=== PATIENT | male | born 1960 | race Caucasian/White ===

== ENCOUNTER 2016-05-12 01:24 | Emergency (ER) | payer OTHER ==
--- NOTE | 2016-05-12 03:30 | ED NURSING NOTES ---
Clinical Report - Nurses [facility] [place] [address] 05/12/2016 1:25 Patient: ADRIANE RODRIGUEZ TRIAGE Triage time 01:40. Acuity: LEVEL 3. Chief Complaint: ABDOMINAL PAIN, VOMITING and DIARRHEA. 01:46. Alert. SEPSIS SCREEN: Sepsis Screen. Negative (no infection suspected/documented). --01:46 Sathish Cantu R.N. 01:38 05/12/16. BP: 134/96. HR: 65. RR: 15. O2 saturation: 96%. Temp: 95.8 F (oral). Pain level now: 11/17. --01:46 Sathish Cantu R.N. Weight: 77.1 kg stated. Height/Length: 75 inches Per Patient. BMI: 21.2. --01:45 Sathish Cantu R.N. Medications None. --01:41 Sathish Cantu R.N. Medication/allergy information source: the patient. --01:46 Sathish Cantu R.N. Allergies No Known Drug Allergy. --01:41 Sathish Cantu R.N. History Arrived by private vehicle. Historian: patient. Accompanied by family. Primary physician (Alfredo). Onset. (5 days ago). 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 PAST MEDICAL HX: Immunizations: up-to-date. SOCIAL HX: Current every day heavy tobacco smoker- less than 1 pack per day. Occasional alcohol use. History of occasional drug use: marijuana. No recent travel. No infectious disease exposure. ABUSE ASSESSMENT: No report of abuse. FALL RISK ASSESSMENT: Fall risk assessment completed. No fall risk identified. NUTRITIONAL RISK ASSESSMENT: The nutritional risk assessment revealed no deficiencies. FUNCTIONAL ASSESSMENT: Functional assessment: no impairments noted. LEARNING NEEDS ASSESSMENT: The learning needs assessment revealed no barriers. SKIN INTEGRITY ASSESSMENT: Skin integrity risk assessment completed. No skin integrity risk identified. --01:46 Sathish Cantu R.N. PROBLEMS: Dental Abscess. Dental Caries. Bronchitis. --01:41 Sathish Cantu R.N. ADDITIONAL SURGERIES: Knee Surgery. --01:41 Sathish Cantu R.N. Interventions ID band on patient. To treatment room. --01:46 Sathish Cantu R.N. PHYSICAL ASSESSMENT 01:46. To room via wheelchair. Patient gowned. GENERAL / NEURO / PSYCH: Alert. Oriented X 4. HEENT: Mucous membranes are pink. RESPIRATORY: Respirations not labored. SKIN: Skin is warm and dry. --01:46 Sathish Cantu R.N. NURSING PROGRESS NOTES 01:46. Head of bed elevated. Two patient identifiers checked. Call light placed in reach. Bed placed in lowest position. Brakes of bed on. --01:46 Sathish Cantu R.N. Pulse oximeter and NIBP monitor placed on patient; monitor alarms on. --01:47 Sathish Cantu R.N. 01:52 05/12/2016 Site #1 started via IV in the right antecubital space with an 18g angiocath, with aseptic technique and good blood return; one attempt. Blood drawn: rainbow set. Labeled in the presence of the patient and sent to the lab. --01:57 Sathish Cantu R.N. 01:53 05/12/2016 Started bag #1 1000 mL IV Fluids IV NS (Saline); at 1000 mL/hr over 1 hour(s) via site #1 --01:57 Sathish Cantu R.N. 01:55 05/12/2016 Zofran (Ondansetron HCl) IVP 4 mg given over 2 minute(s) via site #1. Allergies verified and confirmed 5 rights. IV patency established. IV site checked: no pain, redness, or swelling. IV flushed thoroughly pre- and post-medication administration. --01:58 Sathish Cantu R.N. 01:46 Patient reports unable to provide urine sample now. --02:03 Sathish Cantu R.N. 02:45 05/12/2016 PHENERGAN (Promethazine HCl) IVP 25 mg given over 2 minute(s) via site #1. Allergies verified and confirmed 5 rights. IV patency established. IV site checked: no pain, redness, or swelling. IV flushed thoroughly pre- and post-medication administration. --02:50 Sathish Cantu R.N. 02:47 05/12/2016 Benadryl (DiphenhydrAMINE HCl) IVP 25 mg given over 2 minute(s) via site #1. Allergies verified, confirmed 5 rights and sedative warning given to the patient and patient's family. IV patency established. IV site checked: no pain, redness, or swelling. IV flushed thoroughly pre- and post-medication administration. --02:51 Sathish Cantu R.N. 02:49 05/12/2016 Started bag #2 1000 mL IV Fluids IV NS (Saline); at 1000 mL/hr over 1 hour(s) via site #1 --02:51 Sathish Cantu R.N. 03:46. The patient is calm and resting quietly. SKIN: Skin is warm and dry. Skin color within normal limits. --03:48 Sathish Cantu R.N. DISPOSITION / DISCHARGE 02:48 05/12/2016 IV Fluids IV NS Discontinued: bag #1 infused. Total amount infused: 1000 mL. IV patency established. IV site checked: no pain, redness, or swelling. IV flushed thoroughly. --03:46 Sathish Cantu R.N. 03:43 05/12/2016 IV Fluids IV NS Discontinued: bag #2 infused upon discharge. Total amount infused: 1000 mL. IV patency established. IV site checked: no pain, redness, or swelling. IV flushed thoroughly. --03:47 Sathish Cantu R.N. 03:45 05/12/2016 Site #1 removed. Catheter intact. Bandage applied. --03:47 Sathish Cantu R.N. Departure time: 03:48. Condition at departure: stable. No learning barriers present. Discharge instructions provided and reviewed with the patient and family. Reviewed medication(s) side effects, precautions, dosing and course information. Prescription(s) given to the patient. Patient and family verbalized understanding. Written instructions provided in Kiswahili. The patient was discharged home and accompanied by family. He left the Emergency Department ambulatory and via private vehicle. Family member driving. FALL RISK ASSESSMENT: Fall risk assessment completed. No fall risk identified. --03:48 Sathish Cantu R.N. 03:40 05/12/16. BP: 131/87. HR: 81. RR: 17. O2 saturation: 100%. --03:48 Sathish Cantu R.N. Locked/Released at 05/12/2016 3:49 by Sathish Cantu R.N.
--- NOTE | 2016-05-12 03:30 | ED ORDER SUMMARY ---
..... Patient: ADRIANE RODRIGUEZ OrderSheet [facility] VisitID: [id number] [place] [address] 55y, M Registration Date/Time: 05/12/2016 ORDER SHEET Weight: 77.1 kg (stated) Allergies: No Known Drug Allergy GENERAL ORDERS: CBC w Diff Urgent (01:55 05/12/2016 JQuivey R.N. per protocol) (Ack 1:58 CHagerty ER Manager Managing) (1:58 JQuivey R.N.) CMP Urgent (:05/12/2016 JQuivey R.N. per protocol) (Ack 1:58 CHagerty ER Manager Managing) (1:58 JQuivey R.N.) UA-Culture if indicated Urgent (:05/12/2016 JQuivey R.N. per protocol) (Ack 1:58 CHagerty ER Manager Managing) (Cancelled: Other3:37 JQuivey R.N.) Amylase Urgent (:05/12/2016 JQuivey R.N. per protocol) (Ack 1:58 CHagerty ER Manager Managing) (1:58 JQuivey R.N.) Lipase Urgent (:05/12/2016 JQuivey R.N. per protocol) (Ack 1:58 CHagerty ER Manager Managing) (1:58 JQuivey R.N.) MEDICATION ORDERS: Phenergan IV 25 mg (HIGH ALERT MEDICATION, NOW) (02:38 05/12/2016 Sanjay HELLER) (Ack 2:44 JQuivey R.N.) (2:50 JQuivey R.N.) IV FLUIDS: IV NS : initial bolus none -, then 1000 mL/hr (NOW) (01:54 05/12/2016 JQuivey R.N. per protocol) (1:57 JQuivey R.N.) Zofran IV 4 mg (NOW) (01:55 05/12/2016 JQuivey R.N. per protocol) (1:58 JQuivey R.N.) Benadryl IV 25 mg (NOW) (02:39 05/12/2016 Sanjay HELLER) (Ack 2:44 Maty Moreau) (2:51 Maty Moreau) IV NS : initial bolus 1000 mL (1000 mL/hr), then none - (NOW) (02:46 05/12/2016 Sanjay HELLER) (2:51 Maty Moreau) ORDER SHEET NOTES: [Electronically signed by Sathish Cantu R.N. (03:49 05/12/2016)] [Electronically signed by Shabana Dumont MD (17:17 05/12/2016)] [Electronically locked/signed by Sathish Cantu R.N. (03:49 05/12/2016)]
--- NOTE | 2016-05-12 03:30 | ED ORDER SUMMARY ---
..... Patient: ADRIANE RODRIGUEZ OrderSheet [facility] VisitID: [id number] [place] [address] 55y, M Registration Date/Time: 05/12/2016 ORDER SHEET Weight: 77.1 kg (stated) Allergies: No Known Drug Allergy GENERAL ORDERS: CBC w Diff Urgent (01:55 05/12/2016 JQuivey R.N. per protocol) (Ack 1:58 CHagerty ER Home Based Assistant) (1:58 JQuivey R.N.) CMP Urgent (:05/12/2016 JQuivey R.N. per protocol) (Ack 1:58 CHagerty ER Home Based Assistant) (1:58 JQuivey R.N.) UA-Culture if indicated Urgent (:05/12/2016 JQuivey R.N. per protocol) (Ack 1:58 CHagerty ER Home Based Assistant) (Cancelled: Other3:37 JQuivey R.N.) Amylase Urgent (:05/12/2016 JQuivey R.N. per protocol) (Ack 1:58 CHagerty ER Home Based Assistant) (1:58 JQuivey R.N.) Lipase Urgent (:05/12/2016 JQuivey R.N. per protocol) (Ack 1:58 CHagerty ER Home Based Assistant) (1:58 JQuivey R.N.) MEDICATION ORDERS: Phenergan IV 25 mg (HIGH ALERT MEDICATION, NOW) (02:38 05/12/2016 Sanjay HELLER) (Ack 2:44 JQuivey R.N.) (2:50 JQuivey R.N.) IV FLUIDS: IV NS : initial bolus none -, then 1000 mL/hr (NOW) (01:54 05/12/2016 JQuivey R.N. per protocol) (1:57 JQuivey R.N.) Zofran IV 4 mg (NOW) (01:55 05/12/2016 JQuivey R.N. per protocol) (1:58 JQuivey R.N.) Benadryl IV 25 mg (NOW) (02:39 05/12/2016 Sanjay HELLER) (Ack 2:44 Maty Moreau) (2:51 Maty Moreau) IV NS : initial bolus 1000 mL (1000 mL/hr), then none - (NOW) (02:46 05/12/2016 Sanjay HELLER) (2:51 Maty Moreau) ORDER SHEET NOTES: [Electronically signed by Sathish Cantu R.N. (03:49 05/12/2016)] [Electronically signed by Shabana Dumont MD (17:17 05/12/2016)] [Electronically locked/signed by Sathish Cantu R.N. (03:49 05/12/2016)]
--- NOTE | 2016-05-12 03:30 | ED CLINICAL REPORT ---
Clinical Report - Physicians/Mid Levels [facility] [address] [place] [address] 05/12/2016 1:25 Patient: ADRIANE RODRIGUEZ Time Seen: 0204. Arrived- By private vehicle. Historian- patient. HISTORY OF PRESENT ILLNESS Chief Complaint: VOMITING and DIARRHEA. This started several days ago and is still present but is improving. (diarrhea has resolved). No recent travel. He has had nausea, vomiting and moderate, crampy abdominal pain. The pain is described as located in the lower abdomen. No black stools, bloody stools, constipation, flank pain or history of possible bad food exposure. No change in routine. Has not recently been camping or on antibiotics. He has had contact with a sick individual. (daughter had same illness one week ago, and states it lasted 5 days). The illness is described as moderate. Similar symptoms previously: Occasionally. Recent medical care: Not recently seen/assessed. REVIEW OF SYSTEMS No fever, muscle aches, difficulty with urination, dark urine or headache. No dizziness, sore throat, cough, chest pain or difficulty breathing. No excessive urination, skin rash, jaundice, back pain or fainting episodes. No blurred vision. All systems otherwise negative, except as recorded above. PAST HISTORY Problems: Dental Abscess. Dental Caries. Bronchitis. Additional Surgeries: Knee Surgery. Medications: None. Allergies: No Known Drug Allergy. SOCIAL HISTORY Smoker- current status unknown. Occasional alcohol use. History of drug use: marijuana. ADDITIONAL NOTES The nursing notes have been reviewed. PHYSICAL EXAM Vital Signs: 05/12/2016 01:38 BP: 134/96. HR: 65. RR: 15. O2 saturation: 96%. Temp: 95.8 F. Pain level now: 9/10. Have been reviewed. Appearance: Alert. Oriented X3. No acute distress. (PT appears moderately uncomfortable.). Eyes: Pupils equal, round and reactive to light. Eyes normal inspection. ENT: Nose normal. Neck: Normal inspection. Neck supple. CVS: Normal heart rate and rhythm. Heart sounds normal. Pulses normal. Respiratory: No respiratory distress. Breath sounds normal. Abdomen: Soft. Mild tenderness diffusely. No guarding or rebound tenderness. Back: Normal inspection. No CVA tenderness. Skin: Skin warm and dry. Normal skin color. No rash. Normal skin turgor. Extremities: Extremities exhibit normal ROM. No lower extremity edema. Neuro: Oriented X 3. No motor deficit. No sensory deficit. LABS, X-RAYS, AND EKG Laboratory Tests: CBC w Diff: (GUSTABO: 05/12/2016 02:00) ( MsgRcvd 05/12/2016 02:08) Final results Test Result Flag Units (Reference) WHITE BLOOD COUNT 10.2 K/uL (4.5-11.5) RED BLOOD COUNT 5.37 M/uL (4.50-5.90) HEMOGLOBIN 16.1 gm/dL (13.5-17.5) HEMATOCRIT 48.8 % (41.0-53.0) MEAN CELL VOLUME 91 fL (80-100) MEAN CORPUSCULAR HGB 30 pg (26-34) MEAN CORPUSCULAR HGB CONC 33 g/dL (31-37) RED CELL DISTRIBUTION WIDTH 13.0 % (11.6-14.8) PLATELET COUNT 266 K/uL (150-400) NEUTROPHIL % 80.4 H % (50-75) LYMPH % 14.4 L % (25-40) MONO % 3.9 % (3-14) EOSINOPHIL % 1.2 % (0-4) BASOPHIL % 0.1 % (0-2) CMP: (GUSTABO: 05/12/2016 02:00) ( MsgRcvd 05/12/2016 02:23) Final results Test Result Flag Units (Reference) GLUCOSE 156 H mg/dL (70-110) BUN 14 mg/dL (7-18) CREATININE 1.1 mg/dL (0.6-1.3) Estimated GFR >60 mL/min Estimated GFR- >60 mL/min Note: Persistent reduction over 3 months in eGFR<60 mL/min/1.73 m2 defines CKD. Patients with eGFR values>=60 mL/min/1.73 m2 may also have CKD if evidence ofpersistent proteinuria. Additional information may be foundat www.kidney.org. SODIUM 141 mmol/L (136-145) POTASSIUM 3.9 mmol/L (3.5-5.1) CHLORIDE 102 mmol/L (98-107) CARBON DIOXIDE 32 mmol/L (21-32) CALCIUM 10.0 mg/dL (8.5-10.1) TOTAL PROTEIN 8.1 g/dL (6.4-8.2) ALBUMIN 4.0 g/dL (3.3-5.0) BILIRUBIN, TOTAL 0.3 mg/dL (0.0-1.0) ALKALINE PHOSPHATASE 135 H U/L (46-116) AST (SGOT) 29 U/L (15-37) ALT (SGPT) 60 U/L (12-78) LIPASE 93 U/L (73-393) AMYLASE 55 U/L (25-115) . Pulse Oximetry: 05/12/2016 01:38 O2 saturation: 96%. (FIO2 - room air). Interpretation: normal. PROGRESS AND PROCEDURES Course of Care: Pt was treated symptomatically with IV fluids, Zofran, Phenergan, and Benadryl, with improvement. Labs showed no leukocytosis or significant abnormalities of abdominal markers. Abdominal exam was nonfocal. We have discussed symptomatic management. No emergent condition identified. Patient and family counseled regarding the patient's stable condition, test results, diagnosis and need for follow-up. Concerns were addressed. Old medical records reviewed. Disposition: Discharged. Condition: stable and improved. CLINICAL IMPRESSION Acute viral gastroenteritis with dehydration. INSTRUCTIONS Drink plenty of fluids. Warnings: SEDATIVE MEDICATION: You were given sedative medication during your visit. Do not drive or operate dangerous machinery for 6 hours. GENERAL WARNINGS: Return or contact your physician immediately if your condition worsens or changes unexpectedly, if not improving as expected, or if other problems arise. Prescription Medications: Zofran (orally disintegrating tablets) 4 mg: take 1-2 orally every 6 hours as needed for nausea. Dispense fifteen (15). No refill. Substitution is permissible. Follow-up: Follow up with your doctor in three days if not better. Understanding of the discharge instructions verbalized by patient and family. (Electronically signed by Shabana Dumont MD 05/12/2016 17:17)
--- NOTE | 2016-05-12 17:17 | ED MAR SUMMARY ---
..... Medication Administration Record [facility] [address] [place] [address] Patient: ADRIANE RODRIGUEZ Visit ID: [id number] 55y, M Weight: 77.1 kg Height/Length: 75 in BMI: 21.2 ALLERGIES: No Known Drug Allergy Start 01:53 05/12/2016 Sathish Cantu R.N., Stop 02:48 05/12/2016 Sathish Cantu R.N. Medication Administered: IV NS (SALINE), Dose: IV Fluids over 1 hour(s), Rate: 1000 mL/hr, Dispensed: 1000 mL bag, Site: #1 right AC. Medication Ordered: IV NS : initial bolus none -, then 1000 mL/hr (NOW). Given 01:55 05/12/2016 Sathish Cantu R.N. Medication Administered: ZOFRAN [IVP] (ONDANSETRON HCL), Dose: 4 mg IVP over 2 minute(s), Site: #1 right AC. Medication Ordered: Zofran IV 4 mg (NOW). Given 02:45 05/12/2016 Sathish Cantu R.N. Medication Administered: PHENERGAN [IVP] (PROMETHAZINE HCL), Dose: 25 mg IVP over 2 minute(s), Site: #1 right AC. Medication Ordered: Phenergan IV 25 mg (HIGH ALERT MEDICATION, NOW). Given 02:47 05/12/2016 Sathish Cantu R.N. Medication Administered: BENADRYL [IVP] (DIPHENHYDRAMINE HCL), Dose: 25 mg IVP over 2 minute(s), Site: #1 right AC. Medication Ordered: Benadryl IV 25 mg (NOW). Start 02:49 05/12/2016 Sathish Cantu R.N., Stop 03:43 05/12/2016 Sathish Cantu R.N. Medication Administered: IV NS (SALINE), Dose: IV Fluids over 1 hour(s), Rate: 1000 mL/hr, Dispensed: 1000 mL bag, Site: #1 right AC. Medication Ordered: IV NS : initial bolus 1000 mL (1000 mL/hr), then none - (NOW).
--- NOTE | 2016-05-12 17:17 | ED MED RECONCILIATION SUMMARY ---
Patient: ADRIANE RODRIGUEZ Medication Reconciliation Report [facility] VisitID: [id number] [address] [place] [address] 55y, M Registration Date/Time: 05/12/2016 Weight: 77.1 kg Height/Length: 75 in. BMI: 21.2 ALLERGIES: No Known Drug Allergy The patient's Home Medications are listed below: NONE. The source(s) of the original Home Medication information: patient The following Medications were given to the patient in the Emergency Department: IV NS IV Fluids bolus 0, then 1000 mL/hr, administered: 05/12/2016 1:53:00 AM Zofran [IVP] IVP 4 mg, administered: 05/12/2016 1:55:00 AM PHENERGAN [IVP] IVP 25 mg, administered: 05/12/2016 2:45:00 AM Benadryl [IVP] IVP 25 mg, administered: 05/12/2016 2:47:00 AM IV NS IV Fluids bolus 0, then 1000 mL/hr, administered: 05/12/2016 2:49:00 AM The following Medications were prescribed to the patient: Zofran (orally disintegrating tablets) 4 mg: take 1-2 orally every 6 hours as needed for nausea. Dispense fifteen (15). No refill. Substitution is permissible. -- Shabana Dumont MD
--- NOTE | 2016-05-12 17:17 | ED DISCHARGE INSTRUCTIONS ---
Patient: ADRIANE RODRIGUEZ General Instructions [facility] VisitID: [id number] [place] [address] 55y, M Registration Date/Time: 05/12/2016 Acute viral gastroenteritis with dehydration. INSTRUCTIONS Drink plenty of fluids. Warnings: SEDATIVE MEDICATION: You were given sedative medication during your visit. Do not drive or operate dangerous machinery for 6 hours. GENERAL WARNINGS: Return or contact your physician immediately if your condition worsens or changes unexpectedly, if not improving as expected, or if other problems arise. Prescription Medications: Zofran (orally disintegrating tablets) 4 mg: take 1-2 orally every 6 hours as needed for nausea. Dispense fifteen (15). No refill. Substitution is permissible. Follow-up: Follow up with your doctor in three days if not better. Understanding of the discharge instructions verbalized by patient and family. ADDITIONAL INFORMATION Viral Gastroenteritis (6Yr-Adult) Gastroenteritis is another name for thestomach flu.It is most often caused by a virus that affects the stomach and intestinal tract. Symptoms include stomach cramping and fever, vomiting and/or diarrhea, and can last from 2 to 7 days. The danger from repeated vomiting or diarrhea is dehydration. This is the loss of too much water and minerals from the body. When this occurs, body fluids must be replaced. Antibiotics are not effective for this illness, but simple home treatment will be helpful. Home Care If symptoms are severe, rest at home for the next 24 hours. Avoid tobacco, caffeine, and alcohol use, which can worsen symptoms. Acetaminophen (Tylenol) or ibuprofen (Motrin, Advil) may be usedfor fever or pain unless another medication was prescribed. NOTE: If you have chronic liver or kidney disease or ever had a stomach ulcer or GI bleeding, talk with your doctor before using these medicines. Aspirin should never be used in anyone under 18 years of age who is ill with a fever. It may cause severe liver damage. If medicines for diarrhea or vomiting were prescribed, be sure they are takenonly as directed. If vomiting, drink small amounts of clear fluids (such as water, sports drinks, clear sodas) at frequent intervals to prevent dehydration. Start with 1 to 2 tablespoons every 10 minutes. Once vomiting stops, follow these guidelines: During The First 12 To 24 Hours follow the diet below: Beverages: Sport drinks like Gatorade, soft drinks without caffeine; jessi yanira, mineral water (plain or flavored), decaffeinated tea and coffee. Soups: Clear broth, consomm and bouillon Desserts: Plain gelatin (Jell-O), Popsicles and fruit juice bars. During The Next 24 Hours you may add the following to the above: Hot cereal, plain toast, bread, rolls, crackers Plain noodles, rice, mashed potatoes, chicken noodle or rice soup Unsweetened canned fruit (avoid pineapple), bananas Limit fat intake to less than 15 grams per day by avoiding margarine, butter, oils, mayonnaise, sauces, gravies, fried foods, peanut butter, meat, poultry, and fish. Limit fiber; avoid raw or cooked vegetables, fresh fruits (except bananas), and bran cereals. Limit caffeine and chocolate. Do not use spices or seasonings except salt. During The Next 24 Hours The patient can gradually resume a normal diet as symptoms lessen. Preventing Spread Hand washing with soap and water is the best way to prevent the spread of viruses. Caregivers should wash their hands before andafter touching the sick person. The sick person, as well as everyone in the family,should wash their hands after using the toilet and before meals. Clean the toilet after each use. People with diarrhea should not prepare food for others. If you are preparing your own foods, wash your hands before and after. Follow Up with your doctor as advised. Call your doctor if you are not improving over the next 2 to 3 days. If a stool (diarrhea) sample was taken, you may call in 2 days (or as directed) for the results. Get Prompt Medical Attention if any of the following occur: Increasing abdominal pain Continued vomiting (unable to keep liquids down) Frequent diarrhea (more than 5 times a day) Blood in vomit or stool (black or red color) Dark urine, reduced urine output, or extreme thirst Weakness, dizziness, fainting Drowsiness, confusion, stiff neck, or seizure Fever of 100.4F (38C) oral or higher, not better with fever medication New rash You have been given the following additional information: Gastroenteritis, Viral (6Y-Adult) (Electronically signed by Shabana Dumont MD 05/12/2016 17:17)
--- NOTE | 2016-05-12 17:17 | ED MED RECONCILIATION SUMMARY ---
Patient: ADRIANE RODRIGUEZ Medication Reconciliation Report [facility] VisitID: [id number] [address] [place] [address] 55y, M Registration Date/Time: 05/12/2016 Weight: 77.1 kg Height/Length: 75 in. BMI: 21.2 ALLERGIES: No Known Drug Allergy The patient's Home Medications are listed below: NONE. The source(s) of the original Home Medication information: patient The following Medications were given to the patient in the Emergency Department: IV NS IV Fluids bolus 0, then 1000 mL/hr, administered: 05/12/2016 1:53:00 AM Zofran [IVP] IVP 4 mg, administered: 05/12/2016 1:55:00 AM PHENERGAN [IVP] IVP 25 mg, administered: 05/12/2016 2:45:00 AM Benadryl [IVP] IVP 25 mg, administered: 05/12/2016 2:47:00 AM IV NS IV Fluids bolus 0, then 1000 mL/hr, administered: 05/12/2016 2:49:00 AM The following Medications were prescribed to the patient: Zofran (orally disintegrating tablets) 4 mg: take 1-2 orally every 6 hours as needed for nausea. Dispense fifteen (15). No refill. Substitution is permissible. -- Shabana Dumont MD
--- NOTE | 2016-05-12 17:17 | ED MAR SUMMARY ---
..... Medication Administration Record [facility] [address] [place] [address] Patient: ADRIANE RODRIGUEZ Visit ID: [id number], M Weight: 77.1 kg Height/Length: 75 in BMI: 21.2 ALLERGIES: No Known Drug Allergy Start 01:53 05/12/2016 Sathish Cantu R.N., Stop 02:48 05/12/2016 Sathish Cantu R.N. Medication Administered: IV NS (SALINE), Dose: IV Fluids over 1 hour(s), Rate: 1000 mL/hr, Dispensed: 1000 mL bag, Site: #1 right AC. Medication Ordered: IV NS : initial bolus none -, then 1000 mL/hr (NOW). Given 01:55 05/12/2016 Sathish Cantu R.N. Medication Administered: ZOFRAN [IVP] (ONDANSETRON HCL), Dose: 4 mg IVP over 2 minute(s), Site: #1 right AC. Medication Ordered: Zofran IV 4 mg (NOW). Given 02:45 05/12/2016 Sathish Cantu R.N. Medication Administered: PHENERGAN [IVP] (PROMETHAZINE HCL), Dose: 25 mg IVP over 2 minute(s), Site: #1 right AC. Medication Ordered: Phenergan IV 25 mg (HIGH ALERT MEDICATION, NOW). Given 02:47 05/12/2016 Sathish Cantu R.N. Medication Administered: BENADRYL [IVP] (DIPHENHYDRAMINE HCL), Dose: 25 mg IVP over 2 minute(s), Site: #1 right AC. Medication Ordered: Benadryl IV 25 mg (NOW). Start 02:49 05/12/2016 Sathish Cantu R.N., Stop 03:43 05/12/2016 Sathish Cantu R.N. Medication Administered: IV NS (SALINE), Dose: IV Fluids over 1 hour(s), Rate: 1000 mL/hr, Dispensed: 1000 mL bag, Site: #1 right AC. Medication Ordered: IV NS : initial bolus 1000 mL (1000 mL/hr), then none - (NOW).
== END 2016-05-12 03:48 | disposition home or self-care (01) ==
LOC: ED SRH 01:24
DX: A08.39 Other viral enteritis (principal); E86.0 Dehydration
CPT/HCPCS: 90100; 92235; 92530; 95059